=== PATIENT | female | born 1995 | race Caucasian/White ===

== ENCOUNTER 2025-05-03 07:30 | Emergency (ER) | payer OTHER, SELFPAY ==
--- NOTE | 2025-05-03 07:51 | ED.GENMED ---
History of Present Illness
General
Chief Complaint: Chest Problem
Time Seen by Provider: 05/03/25 07:51
History of Present Illness
History of Present Illness:
FOCUSED PAST MEDICAL HISTORY
- No significant past medical history
REVIEW OF OLD RECORDS
- No old records available for review to [facility]
Note:
CHIEF COMPLAINT(S)
Left-sided chest pain with activity and movement.
HISTORY OF PRESENT ILLNESS
The patient is a 29-year-old female with no significant past medical history, presenting with left-sided chest pain that began this morning. She describes the pain as initially associated with congestion, likening it to a head cold and possibly
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 The pain notably intensified with certain movements, such as lifting her arm or standing, and was felt to radiate to the left pelvic area. The pain was not constant and varied with activity, worsening during
movement and alleviating somewhat while sitting. The patient mentioned experiencing a sensation of congested breathing but did not feel short of breath. She denied any recent surgeries or family history of blood clots. There were no symptoms of
sweating or significant shortness of breath. Upon examination, when pressure was applied to different areas of the chest, the pain was elicited, consistent with costochondritis, a condition characterized by inflammation of the chest wall. The
patients EKG was normal, making serious cardiac events like a myocardial infarction less likely. She has taken ibuprofen with uncertain relief. Despite normal vitals, including a perfect oxygen saturation, there was concern about pain exacerbation
with physical activity, particularly given her teaching responsibilities.
REVIEW OF SYSTEMS
- Respiratory: Congestion noted, no significant shortness of breath reported.
- Cardiovascular: Pain with movement, no chest tightness or radiating pain noted.
- Musculoskeletal: Pain in the left chest wall, exacerbated by movement and pressure.
PHYSICAL EXAM
General: Alert, no acute distress.
Skin: Warm, dry.
Head: Normocephalic, atraumatic.
Neck: Supple, trachea midline.
Eye Ears, nose, mouth and throat: Oral mucosa moist.
Cardiovascular: Normal peripheral perfusion, no edema.
Respiratory: Respirations are non-labored.
Gastrointestinal: Abdomen nondistended.
Back: Normal range of motion, normal alignment.
Musculoskeletal: Normal range of motion, normal strength; pain elicited upon palpation of left-sided chest wall anteriorly
Neurological: Alert and oriented to person, place, time, and situation, no focal neurological deficit observed.
Psychiatric: Cooperative, appropriate mood & affect.
PROBLEM LIST
Acute:
- Left-sided chest pain, possibly costochondritis.
PLAN
1. Conduct cardiac blood work, including D-Dimer, to rule out blood clotting disorders.
2. Obtain a chest X-ray to further evaluate chest pain.
3. Continue or possibly increase ibuprofen for pain relief as it might be due to musculoskeletal inflammation.
DIFFERENTIAL DIAGNOSIS
The Differential Diagnosis includes, in no particular order and is not limited to:
1. Costochondritis
2. Musculoskeletal strain
3. Pleurodynia
4. Viral upper respiratory infection
5. Pneumonia
6. Pulmonary embolism
7. Gastroesophageal reflux disease
8. Herpes zoster
9. Panic attack
10. Acute coronary syndrome
SUMMARY OF ENCOUNTER
The patient, a 29-year-old female, presented to the emergency department with left-sided chest pain, exacerbated by movement and alleviated somewhat while sitting. A detailed evaluation was performed to rule out serious conditions such as a
myocardial infarction (heart attack), blood clots, and pneumothorax (collapsed lung). The patients EKG was normal and all vitals were stable. A blood test called D-Dimer, which screens for blood clots, returned negative. A chest X-ray was performed
and interpreted as normal by the radiologist, showing no signs of a pneumothorax or pneumonia. The clinical presentation and negative test results suggested costochondritis, an inflammation of the chest wall, possibly related to the patients
occupation as a teacher and physical activity. Ibuprofen was advised for pain management.
DISPOSITION
Discharge.
ASSESSMENT
The patient is likely experiencing costochondritis, a common and benign inflammation of the chest wall.
PLAN
Recommend the use of ibuprofen for pain management. Ibuprofen dosage can be increased to a maximum of four tablets three times a day, if needed, taken with food for the next few days.
INDEPENDENT REVIEW OF LABS AND INTERPRETATION OF TESTS
- My independent review of D-Dimer is negative, indicating no blood clot.
- My independent interpretation of the EKG is normal, indicating no sign of a heart attack.
- My independent interpretation of the chest x-ray is normal, and consistent with no pneumothorax or pneumonia.
PATIENT EDUCATION AND COUNSELING
The patient was informed about the diagnosis of costochondritis and was educated on the use of ibuprofen for pain relief. Advised to take it with food. Discussed the non-serious nature of the condition and the expectation for symptoms to resolve
with time and appropriate pain management.
FOLLOW-UP INSTRUCTIONS
Please follow-up with your primary care provider if symptoms persist or worsen.
MEDICATION RECONCILIATION
Ibuprofen was recommended for management of chest pain, with the dose adjusted to a maximum of four tablets three times a day, as needed with food.
MEDICAL DECISION MAKING
- Number and Complexity of Problems Addressed: Acute left-sided chest pain possibly due to costochondritis.
-Data:
Category 1: Tests and documents reviewed include a D-Dimer test which was negative, an EKG which was normal, and a chest x-ray which was normal.
Category 2: No additional information from external historians was obtained.
Category 3: Discussion of management occurred with the patient upon discharge regarding the condition and pain management with ibuprofen.
-Risk: Consideration of Admission/Observation was assessed given the complaint of chest pain, but with all test results reassuring and no evidence of an acute life-threatening condition, the patient was deemed safe for outpatient management with
follow-up care.
DIAGNOSIS
- Costochondritis (M94.0)
RADIOLOGY
- Chest x-ray and is unremarkable
EKG
- Sinus 76, normal axis, PACs, nonspecific ST abnormality, no old to compare
LABS
- CBC normal, D-dimer less than 0.27, chemistries and troponin unremarkable, hCG negative
Phy Exam
Physical Exam
Physical Exam:
See HPI
Course
Orders/Labs/Results
Orders:
Orders
05/03/25 07:32
Electrocardiogram (*1) Urgent
Reason for Study: Chest Pain
EKG- Treatment ONCE
05/03/25 08:08
Test Result ONCE
CR Chest - 2 Views Urgent
Comment:
Reason For Exam: left pain
05/03/25 08:24
Basic Metabolic Panel Urgent
Complete Blood Count/With Diff Urgent
D-Dimer Urgent
HCG, Urine Qualitative Screen Urgent
Date Specimen was Collected: 05/03/25
Time Specimen was Collected: 08:23
Troponin I Urgent
Abnormal Lab Results
05/03/25
08:24
MPV 10.7 H fL
(7.4-10.4)
Lymphocytes % 19.0 L %
(20.5-51.1)
Monocytes % 9.5 H %
(1.7-9.3)
05/03/25 08:24
05/03/25 08:24
Vital Signs
Initial and Last Documented VS:
Initial Vital Signs
Temp Pulse Resp Pulse Ox
36.7 C 77 16 98
05/03/25 07:47 05/03/25 07:47 05/03/25 07:47 05/03/25 07:47
Last Documented Vital Signs
Temp Pulse Resp BP Pulse Ox
36.7 C 82 17 113/77 97
05/03/25 07:47 05/03/25 08:00 05/03/25 08:00 05/03/25 08:00 05/03/25 08:32
*Pulse Oximetry
SaO2: 98
Oxygen Mode of Delivery: Room air
Patient hypoxic: no
*Critical Care Note
Total Time (30-74mins, 75-104mins- exclusive of procedures): Not Applicable
ED Attending Note
-
Portions of this chart may have been created with voice recognition software.� Occasional wrong word or��sound alike� substitutions may have occurred due to the inherent limitations of voice recognition software.
Discharge Plan
Interventions
Interventions:
*Risk Screen - Suicide Last Done: 05/03/25 07:47
*General Assessment Last Done: 05/03/25 08:27
*Neglect/Abuse Screening Last Done: 05/03/25 07:47
*ED- Fall Risk Assessment Last Done: 05/03/25 08:27
*ED COVID-19 Vaccine History Last Done: 05/03/25 08:27
ED- Cardiac Assessment Last Done: 05/03/25 08:32
ED- Pulmonary Assessment Last Done: 05/03/25 08:32
Discharge Date and Time
Print Language: SUDANESE
[2025-05-03 07:57] VITALS: BP 123/69
[2025-05-03 08:00] VITALS: BP 113/77
[2025-05-03 08:27] VITALS: BMI 24.8
[2025-05-03 08:40] LABS: HCG, Urine Qualitative Screen Negative; Hematocrit 38.3 % (37.0-47.0); Hemoglobin 13.0 g/dL (12.0-16.0); Mean Corp Hgb Conc. 33.9 g/dL (33.0-37.0); Mean Corpuscular Volume 91.2 fL (81.0-99.0); Nucleated Red Blood Cells % 0 %; Platelet Count 194 10^3/uL (130-400); Red Cell Dist. Width 12.0 % (11.5-14.5)
[2025-05-03 08:54] LABS: D-Dimer < 0.27 ug/mlFEU (0.00-0.50)
[2025-05-03 09:03] LABS: Blood Urea Nitrogen 10 mg/dl (7-17); Calcium 10.2 mg/dl (8.4-10.2); Carbon Dioxide 25 mmol/L (22-30); Chloride 106 mmol/L (98-107); Estimated Creatinine Clearance 119 ml/min; Glucose 97 mg/dl (70-99); Potassium 4.4 mmol/L (3.5-5.1); Sodium 138 mmol/L (135-145); eGFR > 60.00
[2025-05-03 09:04] VITALS: BP 111/71
[2025-05-03 09:12] LABS: Troponin I < 0.012 ng/ml
== END 2025-05-03 10:01 | disposition home or self-care (01) ==
LOC: EMR 07:30
PROVIDERS: EMERGENCY PHYSICIAN Emergency Medicine; FAMILY PHYSICIAN Family Medicine
DX: M94.0 Chondrocostal junction syndrome [Tietze] (principal); I49.1 Atrial premature depolarization
CPT/HCPCS: 99284; 71046; 80048; 81025; 84484; 85025; 85379; 93005